=== PATIENT | male | born 1990 | race Caucasian/White ===

== ENCOUNTER 2023-03-15 20:51 | Emergency (ER) | payer SELFPAY ==
[2023-03-15 20:59] VITALS: BP 145/91; PULSE 91; RESP 20; TEMP 98; BMI 28.1
[2023-03-15] MEDS ORDERED: DIPHTH,PERTUSS(ACELL),TET 0.5 ML DISP.SYRIN IM ONE ×2 (22:09→22:10)
== END 2023-03-15 22:22 | disposition home or self-care (01) ==
LOC: JER 20:51 → JERFT 20:51
PROC: 3E0234Z Introduction of Serum, Toxoid and Vaccine into Muscle, Percutaneous Approach (ICD-10-PCS; principal; 2023-03-15)
DX: S01.81XA Laceration without foreign body of other part of head, initial encounter (principal); W22.8XXA Striking against or struck by other objects, initial encounter
CPT/HCPCS: 90715; 99284-25